=== PATIENT | male | born 1955 | race Caucasian/White ===

== ENCOUNTER → 2021-05-23 09:57 | Outpatient (BNVA) | payer OTHER, SELFPAY | PROVIDERS: Family Provider Family Medicine; PCP Emergency Medicine Emergency Medical Services; Visit Provider Surgery | DX: Z20.822 Contact with and (suspected) exposure to COVID-19 (principal); Z12.11 Encounter for screening for malignant neoplasm of colon | CPT/HCPCS: 87635 ==

== ENCOUNTER 2021-05-28 09:07 | Day surgery (SDC) | payer OTHER, SELFPAY ==
[2021-05-07 15:11] VITALS: BMI 18.6
--- NOTE | 2021-05-28 10:08 | ANES.PREANE2 ---
Pre-Anesthetic Assessment Pre-Anesthetic Assessment: Height/Weight: Height 1.88 m Weight 65.771 kg Proposed Procedure: Operation Date: 05/28/21 11:00 Proposed Procedures p Colonoscopy 76269 z12.11(Not Applicable) - Aroldo Alvares MD Was Beta Cheko taken within 24 hours: N/A Was Clonidine taken within 24 hours: N/A Social: Social History: No alcohol and No tobacco (Chews) Exam: Pre-Anes Outpt Exam: alert, oriented x 3, clear to auscultation bilaterally and regular rate & rhythm Airway: Submandibular: WNL Cervical ROM: WNL Dentition: False Anesthetic Plan: ASA status: 2 Anesthesia: MAC Risk of > 500 ml blood loss (7ml/kg in children): No PFSH Anesthesia PFSH: Family History Other CAD (coronary artery disease) Cancer Dementia Diabetes Hypertension Lung disease Denies family history of Psychiatric illness Chronic kidney disease (CKD) Stroke Social History Smoking and tobacco status: never smoked Second hand smoke exposure: No Alcohol intake: current Alcohol intake frequency: few times a month Lives independently: Yes Data Anesthesia Cardiac Studies: No Data to Display
[2021-05-28 10:18] VITALS: BP 116/80; PULSE 51; RESP 18; TEMP 36.4; O2SAT 98
[2021-05-28] MEDS: sodium chloride 0.9% 1,000 ML 30 ML IV (10:24)
--- NOTE | 2021-05-28 11:41 | W.PM.OPSFHP ---
Same Day Surgery H&P Indication for Procedure/HPI DATE OF PROCEDURE: May 28, 2021 CHIEF COMPLAINT/INDICATIONFOR SURGICAL PROCEDURE: Screening colonoscopy PREOP DIAGNOSIS: Screening colonoscopy PLANNED PROCEDRUE: Operation Date: 05/28/21 11:00 Proposed Procedures p Colonoscopy 55642 z12.11(Not Applicable) - Aroldo Alvares MD This is a pleasant 65 years old gentleman comes today to discuss screening colonoscopy. Denies bleeding. Last colonoscopy was done 13 years ago. No history of colon cancer, or nonintentional weight loss. Interim history 05/28/2021 Patient comes today for screening colonoscopy ROS Systems have been reviewed negative except as per the above or problem list Medications/Allergies* Home Medications Medication Instructions Recorded Confirmed Type No Known Home Medications 03/27/21 05/28/21 History Allergies/Adverse Reactions Allergy/AdvReac Type Severity Reaction Status Date / Time No Known Allergies Allergy Verified 03/29/21 08:38 Current Medications: Generic Name Dose Route Start Last Admin Trade Name Freq PRN Reason Stop Dose Admin Sodium Chloride 1,000 mls @ 30 mls/hr 05/28/21 10:30 05/28/21 10:24 Sodium Chloride 0.9% IV 05/29/21 10:29 30 mls/hr .Q24H GREGORIA Administration Pertinent History/Comorbid Conditions* Family History (Updated 03/27/21 @ 15:27 by Christen Breaux) Diabetes CAD (coronary artery disease) Dementia Lung disease Cancer Hypertension Denies family history of Psychiatric illness Chronic kidney disease (CKD) Stroke Social History Smoking and tobacco status: never smoked Second hand smoke exposure: No Alcohol intake: current Alcohol intake frequency: few times a month Lives independently: Yes Pertinent Exam Findings alert, oriented x 3, clear to auscultation bilaterally, regular rate & rhythm and procedure specific exam findings (Abdominal examination nontender nondistended soft) Recommendations Surgery/Procedure today (Screening colonoscopy) Other Plans: Plan of care; After thorough history and physical examination and reviewing the chart, plan to perform screening colonoscopy. I discussed with the patient in details the risks,benefits,alternatives and indications.The risk of aspiration, bleeding, soft tissue injury, perforation of the colon and other potential concomitant complications were explained to the patient in details,also the potential need for Laproscoy/Laparotomy to repair any related complications including but not limited to colectomy and or Closotomy.The patient understood this well and did agree to proceed. Rationale was carefully and clearly discussed with the patient.Appropriate informed consent have been reviewed and signed All questions have been answered and all concerns have been addressed to patient's satisfaction. Verbal and written Instructions were given to the patient for colonoscopy prep Coding Level of Care Code Acute [employer] Engineer for Angie Burnett
[2021-05-28 12:10] VITALS: BP 105/64; PULSE 52; RESP 16; TEMP 36; O2SAT 96
[2021-05-28 12:19] VITALS: BP 106/81; PULSE 59; RESP 18; O2SAT 97
--- NOTE | 2021-05-28 12:33 | PM.PACU ---
PACU note Post-Anesthesia Exam: awake and vital signs stable Disposition: discharged
--- NOTE | 2021-05-28 13:55 | ANE.PACU2 ---
Inpatient post-anesthesia follow up: Airway intact: Yes Vital signs: Temperature 96.8 F Pulse Rate 59 Respiratory Rate 18 Blood Pressure 106/81 Pulse Oximetry 97 Oxygen Delivery Me thod Room Air Oxygen Flow Rate Fraction of Inspir ed Oxygen Hydration adequate: Yes Nausea and vomiting: No Pain level: 1 Mental status: Baseline
== END 2021-05-28 12:30 | disposition home or self-care (01) ==
PROVIDERS: PCP Emergency Medicine Emergency Medical Services; Visit Provider Surgery
PROC: 0DJD8ZZ Inspection of Lower Intestinal Tract, Via Natural or Artificial Opening Endoscopic (ICD-10-PCS; CPT 45378; principal; 2021-05-28 11:00)
DX: Z12.11 Encounter for screening for malignant neoplasm of colon (principal); Z82.49 Family history of ischemic heart disease and other diseases of the circulatory system; Z83.3 Family history of diabetes mellitus
CPT/HCPCS: 45378; 96360; 96361; J2704; J7030